=== PATIENT | female | born 1955 | race Caucasian/White ===

== ENCOUNTER 2020-08-22 16:33 | Outpatient (RCR) | payer MEDICARE, OTHER, SELFPAY ==
[2020-08-22] MEDS: COVID-19 VACC, MRNA(PFIZER)/PF 30 MCG/0.3 ML SYRINGE IM (14:25)
[2020-09-12] MEDS: COVID-19 VACC, MRNA(PFIZER)/PF 30 MCG/0.3 ML SYRINGE IM (13:55)
== END 2020-11-26 23:59 ==
LOC: IMMUN 16:33
PROVIDERS: PCP Family Medicine; Referring Provider Family Medicine; Visit Provider Family Medicine
DX: Z23 Encounter for immunization (principal)
CPT/HCPCS: 0001A; 0002A; 91300